=== PATIENT | male | born 1990 | race Caucasian/White ===

== ENCOUNTER 2019-02-08 00:42 | Emergency (ER) | payer BC, OTHER ==
[~2019-02-08] VITALS: Ht 188 cm; Wt 99.8 kg
--- NOTE | 2019-02-08 01:46 | ED Integumentary General ---
General Chief Complaint: Bite-Animal/Human/Insect Stated Complaint: POSSIBLE BROWN RECLUSE BITE Source: patient Exam Limitations: no limitations History of Present Illness Date Seen by Provider: February 08, 2019 Time Seen by Provider: 01:36 Initial Comments the patient presents to ER by private conveyance with chief complaint of his left knee medial anterior aspect has redness swelling and pain for the past 2-3 days presently worsening until today started draining some white discharge. He's been trying to express it on his own. He does not recall bug or insect or arachnid biting him. Does not have a history of abscesses. He does have a history of high blood pressure but not on any medicines. He does drink about 3-4 drinks minimum per day. Smokes one half packs of cigarettes daily. Denies recreational drug use. No nausea fevers chills or abdominal pain. Patient states he is up-to-date on his tetanus shot within the last 5 years. Allergies and Home Medications Allergies Coded Allergies: No Known Drug Allergies (Unverified , 02/08/19) Patient Home Medication List Home Medication List Reviewed: Yes Review of Systems Review of Systems Constitutional: No chills, No diaphoresis EENTM: No ear discharge, No ear pain Respiratory: No cough, No dyspnea on exertion Cardiovascular: No chest pain, No palpitations Gastrointestinal: No abdominal pain, No constipation Genitourinary: No discharge, No dysuria Past Ccvnnjq-Xcbvdn-Ffaukf Hx Patient Social History Alcohol Use: Regular Use Alcohol Beverage of Choice: Beer, Whiskey Recreational Drug Use: No Smoking Status: Current Everyday Smoker Type Used: Cigarettes Recent Foreign Travel: No Contact w/Someone Who Travel: No Physical Exam Vital Signs Vital Signs - First Documented 02/08/19 01:36 Temp 97.0 Pulse 93 Resp 18 B/P (MAP) 130/88 (102) Pulse Ox 97 O2 Delivery Room Air Capillary Refill : General Appearance: WD/WN, no apparent distress HEENT: PERRL/EOMI, pharynx normal Neck: full range of motion, normal inspection Cardiovascular: normal peripheral pulses, regular rate, rhythm Respiratory: no respiratory distress, no accessory muscle use Neurologic/Psychiatric: alert, normal mood/affect, oriented x 3 Skin: other (left knee anterior left medial moderate induration, one half to 2 cm diameter with a central pore and some dried serosanguineous discharge. Tender to palpation.) Procedures/Interventions I&D : Site: left knee anterior medial Blade Size: 15 I & D Procedure: betadine prep Progress Wound was thoroughly cleaned with sterile saline and then soaked in Betadine for 10 minutes. We then infiltrated the wound with 1% lidocaine without epinephrine. When the wound was anesthetized we then used an 15 blade scapula make a cross phillips incision to express 1-3 cc of thick, white, caseous matter. Flush the wound thoroughly with 50 cc of normal saline. Then put a sterile dressing over it and taped it. Patient tolerated the procedure well. Progress/Results/Core Measures Results/Orders My Orders Orders - ANDRE JORDAN Lidocaine 1% Inj 20 Ml (Xylocaine 1% Inj (02/08/19 02:00) Vital Signs/I&O 02/08/19 01:36 Temp 97.0 Pulse 93 Resp 18 B/P (MAP) 130/88 (102) Pulse Ox 97 O2 Delivery Room Air Progress Progress Note : Time: 01:49 Progress Note Minimal area of fluctuance but were going to attempt to open it up and see if is having no sneezing drained out and then put him on Bactrim. Lidocaine 1%. Departure Impression Primary Impression: Abscess Disposition: 01 HOME, SELF-CARE Condition: Improved Departure-Patient Inst. Decision time for Depature: 02:09 Referrals: NO,LOCAL PHYSICIAN (PCP) Primary Care Physician Patient Instructions: Abscess Incision and Drainage Add. Discharge Instructions: Keep the wound clean with regular soap and water and change the dressing as often as it becomes soiled or at least daily. The wound should heal over the next 2 days and when it does you can use just a thin coat of Vaseline and a Band-Aid as necessary. pipelines supervisor the Bactrim and take one tablet twice a day for the next 5 days with food. Tylenol 1000 mg every 8 hours as necessary for pain. Ibuprofen 800 mg every 8 hours as necessary for pain. Warm compresses as often as necessary for pain. If you have increasing redness, swelling, sensation of heat or pain coming from the wound, fevers, nausea and vomiting or pain in your joint then you need to be reexamined by a Dr. Expect significant improvement by day 3 or 4 of antibiotics. All discharge instructions reviewed with patient and/or family. Voiced understanding. Scripts Sulfamethoxazole/Trimethoprim (Bactrim Ds Tablet) 1 Each Tablet 1 EACH PO BID for 5 Days, #10 TAB 0 Refills Prov: ANDRE JORDAN 02/08/19 ANDRE JORDAN February 08, 2019 01:46
[2019-02-08] MEDS ORDERED: LIDOCAINE 1% INJ 20 ML 20 ML VIAL INJ ONE (02:00)
[2019-02-08] MEDS ORDERED: SULF1TAB35 PO (02:10)
[2019-02-08] MEDS ORDERED: TRIM/SULFAMETH 160/800 (SEPTRA DS) TAB PO ONE (02:15)
[2019-02-08 02:18] VITALS: BP 130/88
[2019-02-08] MEDS ORDERED: ACET-2267 PO (02:28)
== END 2019-02-08 02:18 | disposition home or self-care (01) ==
LOC: ER FS 00:46
DX: L02.416 Cutaneous abscess of left lower limb (principal); F17.210 Nicotine dependence, cigarettes, uncomplicated
CPT/HCPCS: 10060

== ENCOUNTER 2019-07-01 22:59 | Emergency (ER) | payer BC ==
[~2019-07-01] VITALS: Ht 186 cm; Wt 92.9 kg
[~2019-07-01 22:59] MED LIST: ACET-2267 PO; SULF1TAB35 PO
[2019-07-01 23:14] LABS: BILIRUBIN,URINE NEGATIVE (NEGATIVE); CLARITY,URINE CLEAR; COLOR,URINE CLEAR; GLUCOSE, URINE (UA) NEGATIVE (NEGATIVE); KETONES,URINE NEGATIVE (NEGATIVE); LEUKOCYTE ESTERASE ,URINE NEGATIVE (NEGATIVE); NITRITE,URINE NEGATIVE (NEGATIVE); PROTEIN,URINE NEGATIVE (NEGATIVE)
--- NOTE | 2019-07-01 23:15 | NUR ---
AT 2300 THE PATIENT GAVE THIS RN A SUPPOSED URINE SAMPLE AND IT TURNED OUT TO BE WATER FROM THE SINK. PT. NOTIFIED THAT WE WOULD NEED ANOTHER SAMPLE FOR THE LAB. PT. SAID HE WOULD GIVE A SAMPLE WHEN HE HAD TO URINATE. PATIENTS FATHER REPORTED THAT THE PT HAS GONE TO 3 COL[facility] STARTED TAKING PROZAC AND HE HAS NOT BEEN RIGHT SINCE. THE FATHER OF THE PATIENT STATED HE LOVES HIS KID AND HE NEEDS HELP.
--- NOTE | 2019-07-01 23:19 | ED Psychosocial ---
General Stated Complaint: SUIDUAL Source: patient (OFELIA EDWARDS MD) History of Present Illness Date Seen by Provider: Jul 01, 2019 Time Seen by Provider: 23:02 Initial Comments 28 yo M presents with complaints of being suicidal. He reports hearing voices in his head telling him that he is worthless, ugly and that he needs to . The voices are telling him to kill himself. He presents tonight with his Dad to the ED. He has a plan of stabbing himself repeatedly. He denies taking any pills, d rugs or medicine. He denies having problems with being suicidal in the past. (OFELIA EDWARDS MD) Allergies and Home Medications Allergies Coded Allergies: No Known Drug Allergies (Unverified , 02/08/19) Home Medications Acetaminophen 500 Mg Tablet, 1,000 MG PO Q8H PRN for PAIN-MILD TO MODERATE Prescribed by: ANDRE JORDAN on 02/08/19 0228 Sulfamethoxazole/Trimethoprim 1 Each Tablet, 1 EACH PO BID Prescribed by: ANDRE JORDAN on 02/08/19 0210 Patient Home Medication List Home Medication List Reviewed: Yes (OFELIA EDWARDS MD) Review of Systems Constitutional: No chills, No fever EENTM: no symptoms reported Respiratory: no symptoms reported Cardiovascular: no symptoms reported Gastrointestinal: no symptoms reported Genitourinary: no symptoms reported Musculoskeletal: no symptoms reported Skin: no symptoms reported Psychiatric/Neurological: Anxiety, Depressed (feeling suicidal and depressed) (OFELIA EDWARDS MD) Past [place]-Xckqse Hx Past Med/Social Hx: Reviewed Nursing Past Med/Soc Hx (OFELIA EDWARDS MD) Patient Social History Alcohol Beverage of Choice: Beer, Whiskey Type Used: Cigarettes 2nd Hand Smoke Exposure: Yes Recent Foreign Travel: No Contact w/Someone Who Travel: No Recent Hopitalizations: No (OFELIA EDWARDS MD) Immunizations Up To Date Tetanus Booster (TDap): Less than 5yrs (OFELIA EDWARDS MD) Seasonal Allergies Seasonal Allergies: No (OFELIA EDWARDS MD) Past Medical History Surgeries: No Respiratory: No Cardiac: No Neurological: No Genitourinary: No Gastrointestinal: No Musculoskeletal: No Endocrine: No HEENT: No Cancer: No Psychosocial: No Integumentary: No Blood Disorders: No (OFELIA EDWARDS MD) Physical Exam Vital Signs - First Documented 07/01/19 23:25 Temp 36.9 Pulse 94 Resp 18 B/P (MAP) 128/76 (93) Pulse Ox 100 O2 Delivery Room Air (ANDREA DOHERTY DO) Capillary Refill : (OFELIA EDWARDS MD) Height, Weight, BMI Height: 6'2.00" Weight: 220lbs. 0oz. 99.542979np; BMI Method:Stated General Appearance: WD/WN, no apparent distress HEENT: PERRL/EOMI, normal ENT inspection, pharynx normal Neck: non-tender, full range of motion, supple, normal inspection Respiratory: chest non-tender, lungs clear, normal breath sounds Cardiovascular: normal peripheral pulses, regular rate, rhythm Gastrointestinal: normal bowel sounds, non tender, soft, no pulsatile mass Extremities: normal range of motion, non-tender, normal inspection, no pedal edema, no calf tenderness Neurologic/Psychiatric: learning and development assistant II-XII nml as tested, alert, oriented x 3, other (anxious mood and stating he is hearing voices all the time telling him to kill himself) Appearance/Memory: appropriate appearance Behavior/Eye Contact: normal speech, avoids eye contact Thoughts/Hallucinations: auditory hallucinations Skin: normal color, warm/dry (OFELIA EDWARDS MD) Progress/Results/Core Measures Results/Orders Lab Results Laboratory Tests Test 07/01/19 23:00 07/01/19 23:20 07/02/19 08:22 Range/Units Urine Color CLEAR YELLOW Urine Clarity CLEAR CLEAR Urine pH 7.0 6.0 5-9 Urine Specific [place] <=1.005 >1.030 1.016-1.022 Urine Protein NEGATIVE 1+ H NEGATIVE Urine Glucose (UA) NEGATIVE NEGATIVE NEGATIVE Urine Ketones NEGATIVE TRACE H NEGATIVE Urine Nitrite NEGATIVE NEGATIVE NEGATIVE Urine Bilirubin NEGATIVE NEGATIVE NEGATIVE Urine Urobilinogen 0.2 0.2 NORMAL MG/DL Urine Leukocyte Esterase NEGATIVE NEGATIVE NEGATIVE Urine RBC (Auto) NEGATIVE NEGATIVE NEGATIVE Urine RBC NONE NONE /HPF Urine WBC NONE NONE /HPF Urine Squamous Epithelial Cells NONE /HPF Urine Crystals NONE NONE /LPF Urine Bacteria NEGATIVE NONE /HPF Urine Casts NONE NONE /LPF Urine Mucus NEGATIVE MODERATE H /LPF Urine Culture Indicated NO NO White Blood Count 9.0 4.3-11.0 10^3/uL Red Blood Count 4.91 4.35-5.85 10^6/uL Hemoglobin 14.2 13.3-17.7 G/DL Hematocrit 41 40-54 % Mean Corpuscular Volume 84 80-99 FL Mean Corpuscular Hemoglobin 29 25-34 PG Mean Corpuscular Hemoglobin Concent 34 32-36 G/DL Red Cell Distribution Width 12.6 10.0-14.5 % Platelet Count 285 130-400 10^3/uL Mean Platelet Volume 9.4 7.4-10.4 FL Neutrophils (%) (Auto) 55 42-75 % Lymphocytes (%) (Auto) 35 12-44 % Monocytes (%) (Auto) 7 0-12 % Eosinophils (%) (Auto) 2 0-10 % Basophils (%) (Auto) 1 0-10 % Neutrophils # (Auto) 4.9 1.8-7.8 X 10^3 Lymphocytes # (Auto) 3.2 1.0-4.0 X 10^3 Monocytes # (Auto) 0.7 0.0-1.0 X 10^3 Eosinophils # (Auto) 0.2 0.0-0.3 10^3/uL Basophils # (Auto) 0.1 0.0-0.1 10^3/uL Sodium Level 140 135-145 MMOL/L Potassium Level 3.5 L 3.6-5.0 MMOL/L Chloride Level 105 98-107 MMOL/L Carbon Dioxide Level 24 21-32 MMOL/L Anion Gap 11 5-14 MMOL/L Blood Urea Nitrogen 10 7-18 MG/DL Creatinine 0.73 0.60-1.30 MG/DL Estimat Glomerular Filtration Rate > 60 BUN/Creatinine Ratio 14 Glucose Level 113 H 70-105 MG/DL Calcium Level 8.7 8.5-10.1 MG/DL Corrected Calcium 8.8 8.5-10.1 MG/DL Total Bilirubin 0.2 0.1-1.0 MG/DL Aspartate Amino Transf (AST/SGOT) 17 5-34 U/L Alanine Aminotransferase (ALT/SGPT) 18 0-55 U/L Alkaline Phosphatase 113 40-136 U/L Total Protein 7.4 6.4-8.2 GM/DL Albumin 3.9 3.2-4.5 GM/DL Salicylates Level < 0.3 L 5.0-20.0 MG/DL Acetaminophen Level < 10 L 10-30 UG/ML Serum Alcohol < 10 <10 MG/DL Urine Opiates Screen NEGATIVE NEGATIVE Urine Oxycodone Screen NEGATIVE NEGATIVE Urine Methadone Screen NEGATIVE NEGATIVE Urine Propoxyphene Screen NEGATIVE NEGATIVE Urine Barbiturates Screen NEGATIVE NEGATIVE Ur Tricyclic Antidepressants Screen NEGATIVE NEGATIVE Urine Phencyclidine Screen NEGATIVE NEGATIVE Urine Amphetamines Screen POSITIVE H NEGATIVE Urine Methamphetamines Screen POSITIVE H NEGATIVE Urine Benzodiazepines Screen POSITIVE H NEGATIVE Urine Cocaine Screen NEGATIVE NEGATIVE Urine Cannabinoids Screen NEGATIVE NEGATIVE (ANDREA DOHERTY DO) My Orders Orders - ANDREA DOHERTY DO Ua Culture If Indicated (07/02/19 08:45) Drug Screen Stat (Urine) (07/02/19 08:45) (ANDREA DOHERTY DO) Vital Signs/I&O 07/02/19 07/02/19 07/02/19 13:00 17:16 19:53 Temp 36.4 36.6 Pulse 96 84 86 Resp 18 14 16 B/P (MAP) 109/61 (77) 107/66 (80) 119/56 (77) Pulse Ox 96 97 98 O2 Delivery Room Air (ANDREA DOHERTY DO) Progress Progress Note #1: Progress Note Patient had been asked to provide a urine specimen and we went in the bathroom he placed water in the specimen cup instead. Advised that we would need to get these tests including blood and urine before I could have any mental health evaluation for him to be able to get him some help. After obtaining blood and electrocardiogram will give him a dose of an antipsychotic to try and help with his voices while waiting on urine specimen and medical clearance to be able to speak with the [facility] mental health screener. Progress Note #2: Progress Note Labs are all stable without acute significant abnormality on his CBC, Chemistry, Alcohol, Acetaminophen, Salicylates. He has Normal ECG without abnormality. Medically stable and clear for screening by mental health. Still waiting on Urine specimen to be able to have mental health screening. Progress Note #3: Time: 06:00 Progress Note Pt refusing catheter and has still not given a urine specimen. This is the only thing still pending before the Mental health group will assess him. Will have to pass care to dayshift to complete care of the patient and determine his final disposition. (OFELIA EDWARDS MD) Initial ECG Impression Date: Jul 01, 2019 Initial ECG Impression Time: 23:09 Initial ECG Rate: 90 Initial ECG Rhythm: Normal Sinus Initial ECG Comparisson: No Previous ECG Available Comment Sinus rhythm with a heart rate 90 bpm. [place] interval of 168 ms. QT interval 373 ms with a QT corrected interval 457 ms. There is no acute ST elevation. There is no prior tracing available for comparison. (OFELIA EDWARDS MD) Transfer of Care Time: 06:00 Care transferred to: Dr. Doherty (OFELIA EDWARDS MD) Departure Communication (Admissions) H&P repeated. I agree with previous assessment. Recommendation per mental health screener is for voluntary inpatient treatment. Patient initially agreeable to inpatient psychiatric care, but declines transfer to three inpatient facilities willing to accept him. Patient verbally upset with ED staff stating that ED is not doing enough for him and leaves ED AMA. Patient demonstrates capacity to make decision. Mental health screener updated and informs staff patient does not currently meet involuntary status. Patient's other updated that if the patient makes suicidal or homicidal statements that he is to contact the police at which time the patient will be brought back to the emergency department and screener will place patient on involuntary status. (ANDREA DOHERTY DO) Impression Primary Impression: Left against medical advice Additional Impressions: Auditory hallucinations Polysubstance abuse Methamphetamine abuse Disposition: 07 AGAINST MEDICAL ADVICE Condition: Unchanged Departure-Patient Inst. Referrals: ROULA LINARES APRN (PCP) Primary Care Physician OFELIA EDWARDS MD Jul 01, 2019 23:19 ANDREA REDD DO Jul 02, 2019 11:15 POS
[2019-07-01 23:21] LABS: BACTERIA,URINE NEGATIVE /HPF
[2019-07-01] MEDS ORDERED: ZIPRASIDONE 20 MG (GEODON) CAP PO STA (23:24)
[2019-07-01 23:31] LABS: BASOPHILS % (AUTO) 1 % (0-10); EOSINOPHILS % (AUTO) 2 % (0-10); HEMATOCRIT 41 % (40-54); HEMOGLOBIN 14.2 G/DL (13.3-17.7); LYMPHOCYTES % (AUTO) 35 % (12-44); MEAN CORPUSCULAR HEMOGLOBIN 29 PG (25-34); MEAN CORPUSCULAR HGB CONC 34 G/DL (32-36); MEAN CORPUSCULAR VOLUME 84 FL (80-99); MEAN PLATELET VOLUME 9.4 FL (7.4-10.4); MONOCYTES % (AUTO) 7 % (0-12); NEUTROPHILS % (AUTO) 55 % (42-75); PLATELET COUNT 285 10^3/uL (130-400); RED CELL DISTRIBUTION WIDTH 12.6 % (10.0-14.5)
[2019-07-01 23:32] LABS: BASOPHILS # (AUTO) 0.1 10^3/uL (0.0-0.1); EOSINOPHILS # (AUTO) 0.2 10^3/uL (0.0-0.3); LYMPHOCYTES # (AUTO) 3.2 X 10^3 (1.0-4.0); MONOCYTES # (AUTO) 0.7 X 10^3 (0.0-1.0); NEUTROPHILS # (AUTO) 4.9 X 10^3 (1.8-7.8)
[2019-07-01 23:52] LABS: POTASSIUM 3.5 MMOL/L (3.6-5.0); SODIUM 140 MMOL/L (135-145)
[2019-07-01 23:53] LABS: ALANINE AMINOTRANSFERASE 18 U/L (0-55); ALBUMIN 3.9 GM/DL (3.2-4.5); ALKALINE PHOSPHATASE 113 U/L (40-136); BILIRUBIN,TOTAL 0.2 MG/DL (0.1-1.0); BUN/CREATININE RATIO 14; CALCIUM 8.7 MG/DL (8.5-10.1); CARBON DIOXIDE 24 MMOL/L (21-32); CHLORIDE 105 MMOL/L (98-107); CREATININE SERUM 0.73 MG/DL (0.60-1.30); GFR ESTIMATED > 60; GLUCOSE 113 MG/DL (70-105); SALICYLATE < 0.3 MG/DL (5.0-20.0); TOTAL PROTEIN 7.4 GM/DL (6.4-8.2)
[2019-07-01 23:54] LABS: ACETAMINOPHEN < 10 UG/ML (10-30)
--- NOTE | 2019-07-02 00:12 | NUR ---
NOTIFIED MENTAL HEALTH FOR THE NEED OF SCREENING. MENTAL HEALTH STATED THEY NEED THE DRUG SCREEN PRIOR TO THE SCREENING, TO CALL BACK AFTER THE RESULTS ARE BACK.
[2019-07-02] MEDS ORDERED: EMTR1TAB7 (00:48)
[2019-07-02] MEDS ORDERED: FLUO20CA45 (00:48)
[2019-07-02] MEDS ORDERED: BUPR300T51 (00:48)
[2019-07-02] MEDS ORDERED: HYDR50TA76 (00:48)
--- NOTE | 2019-07-02 06:01 | NUR ---
PT. HAS BEEN ASKED SEVERAL TIMES IF HE WOULD GIVE A URINE SAMPLE AND HE REFUSED TO DO SO STATING HE DOESNT HAVE TO GO. PT. STATED HE JUST WANTS TO SLEEP. PT. HAS SLEPT MOST OF THE TIME HE HAS BEEN HERE, AROUSING EASILY. PT. HAS BEEN GIVEN JUICE AND WATER.
[2019-07-02 08:14] VITALS: BP 103/68
--- NOTE | 2019-07-02 08:24 | NUR ---
Patient given orange juice for breakfast and asking for some food. This RN stated we have oatmeal, sandwiches, soup, pudding, or chips as options for something to eat. Patient asked if we were going to "just let me starve" and then said to bring him more juice. More orange juice provided for patient and stated for him to let us know if he changed his mind about wanting food.
[2019-07-02 08:56] LABS: CLARITY,URINE CLEAR; COLOR,URINE YELLOW
[2019-07-02 08:57] LABS: BILIRUBIN,URINE NEGATIVE (NEGATIVE); GLUCOSE, URINE (UA) NEGATIVE (NEGATIVE); KETONES,URINE TRACE (NEGATIVE); LEUKOCYTE ESTERASE ,URINE NEGATIVE (NEGATIVE); NITRITE,URINE NEGATIVE (NEGATIVE); PROTEIN,URINE 1+ (NEGATIVE)
[2019-07-02 09:06] LABS: AMPHETAMINE SCREEN, URINE POSITIVE (NEGATIVE); BARBITURATE SCREEN URINE NEGATIVE (NEGATIVE); BENZODIAZEPINES SCREEN URINE POSITIVE (NEGATIVE); CANNABINOID SCREEN, URINE NEGATIVE (NEGATIVE); COCAINE SCREEN URINE NEGATIVE (NEGATIVE); METHADONE STAT NEGATIVE (NEGATIVE); METHAMPHETAMINE SCREEN URINE S POSITIVE (NEGATIVE); OPIATE SCREEN URINE NEGATIVE (NEGATIVE); OXYCODONE STAT NEGATIVE (NEGATIVE); PROPOXYPHENE STAT NEGATIVE (NEGATIVE); TRICYCLIC ANTIDEPRESSANTS SCRE NEGATIVE (NEGATIVE)
--- NOTE | 2019-07-02 09:28 | NUR ---
Contacted [facility] at this time to request screening since UA and drug screen are now complete. Screener stated the tracking number is still [id number] and will call once the screening is set up in approximately 30 minutes.
--- NOTE | 2019-07-02 10:01 | NUR ---
Screener talking with patient via laptop at this time.
--- NOTE | 2019-07-02 10:02 | NUR ---
Labs and facesheet faxed to [facility] at [phone]
--- NOTE | 2019-07-02 10:25 | NUR ---
Screening done for patient. Screener states the patient is going to be a voluntary admission and he will be working on placement for him. If he does try to leave the patient will become involuntary at that time.
[2019-07-02 13:00] VITALS: BP 109/61
--- NOTE | 2019-07-02 13:32 | NUR ---
1317- Faxed referral to [facility] 1323-Faxed referral to [facility] 1332- Spoke with intake nurse at [facility] who stated they had beds and to fax information. They are also requesting an affidavit be completed. Referral faxed at this time.
--- NOTE | 2019-07-02 13:53 | NUR ---
[facility] called, they will fax the affidavit form.
--- NOTE | 2019-07-02 14:24 | NUR ---
Patient given daily home medications at this time from his own pill bottles per order from Dr Doherty. hydroxyzine 50 mg, buproprion 300 mg, [id number]/300, and fluoxetine 60 mg. Addendum: 07/02/19 at 1428 by KBELTRAM Patient given daily home medications at this time from his own pill bottles per order from Dr Doherty. buproprion 300 mg, [id number]/300, and fluoxetine 60 mg.
--- NOTE | 2019-07-02 15:15 | NUR ---
Patient is stating he will not go to [facility] because he does not think they accept his insurance. This RN called [facility] to see if they could tell if his insurance was accepted or not. The international broadcast music librarian stated the business office is closed on the weekend and they are unable to run his insurance to know for sure what coverage he will have.
[2019-07-02 17:16] VITALS: BP 107/66
--- NOTE | 2019-07-02 17:41 | NUR ---
Spoke with Errol, the mental health screener, who states he has not heard from [place] about patient admission and he is going to work on an admission at [facility].
--- NOTE | 2019-07-02 19:13 | NUR ---
[facility] DECLINED TO TAKE THE PATIENT.
[2019-07-02 19:53] VITALS: BP 119/56
--- NOTE | 2019-07-02 19:55 | NUR ---
PT. SLEEPING, AROUSED EASILY. PT. IS COOPERATIVE AT THIS TIME, ASKING FOR MORE JUICE. PT. HAS NO COMPLAINTS AT THIS TIME.
--- NOTE | 2019-07-02 19:56 | NUR ---
WAITING FOR MENTAL HEALTH TO CALL FOR PLACEMENT. PT. HAD REFUSED TO GO TO [facility] SO HIS FATHER IS SUPPOSED TO COME IN AND TALK WITH THE PATIENT.
--- NOTE | 2019-07-02 20:03 | NUR ---
MENTAL HEALTH CALLED TO SEE IF THE PT WOULD GO TO [facility], THEY WOULD TAKE HIM AND HIS INSURANCE BUT THE PT. STATED HE WAS NOT GOING TO GO THERE. WHEN ASKED WHY SINCE THEY WOULD TAKE HIM AND HIS INSURANCE SINCE THE INSURANCE WAS THE PROBLEM BEFORE HE SAID BECAUSE I JUST DO NOT WANT TO GO THERE. WHEN ASKED WHERE HE WOULD GO HE REPORTED ANYWHERE BUT THERE. PT. HAS DECLINED TO GO TO [place], [place] AND NOW [facility]. MENTAL HEALTH STAFF IS TRYING TO FIND PLACEMENT.
[2019-07-02 23:00] VITALS: BP 128/76
--- NOTE | 2019-07-02 23:00 | NUR ---
Doctor Doherty and the patients father was talking with the patient about placement. The pt. had refused 3 different facilities. the pt. continued to refuse placement when the Doctor and his father talked with him. pt. signed out [facility] and stormed out of the er yelling at staff. Doctor Doherty had talked with the patient about possible out patient therapy and the pt. refused that as well. This RN did call [facility] about the availability of the bed that was going to go to the patient before he declined it and was informed the bed was no longer available. This RN did call [place] and they have not called back. This RN did notify mental health and was informed if the doctor thought the patient was not going to hurt himself or others they would just shani him down as left the facility but if the doctor thought the pt was going to hurt himself or others we should call the police and have him re-evaluated as involuntary. mental health was informed the patient went [facility].
== END 2019-07-02 23:00 | disposition left against medical advice (07) ==
LOC: EDUNIT# 22:59 → ER FS 23:01
DX: F15.10 Other stimulant abuse, uncomplicated (principal); R44.0 Auditory hallucinations; F41.9 Anxiety disorder, unspecified; Z77.22 Contact with and (suspected) exposure to environmental tobacco smoke (acute) (chronic)
CPT/HCPCS: 36415; 80053; 80306; 80320; 80329; 81000; 85025; 93005

== ENCOUNTER 2020-02-09 03:49 | Emergency (ER) | payer BC ==
[~2020-02-09] VITALS: Ht 188 cm; Wt 83.0 kg
[~2020-02-09 03:49] MED LIST changes: +BUPR300T98; +EMTR1TAB7; +FLUO20CA46; +HYDR50TA76
--- NOTE | 2020-02-09 03:53 | ED General ---
General Chief Complaint: Substance Abuse Stated Complaint: ETOH Source of Information: Patient History of Present Illness Date Seen by Provider: February 09, 2020 Time Seen by Provider: 03:53 Initial Comments Patient is a 28-year-old male who comes to the emergency department this evening by EMS after drinking alcohol. His primary complaint is right sided abdominal pain which he states started earlier today. He has not had any nausea or vomiting. No prior history of similar symptoms. No fevers. No prior history of abdominal surgeries. He denies urinary symptoms or difficulties with bowel movements. Allergies and Home Medications Allergies Coded Allergies: No Known Drug Allergies (Unverified , 02/08/19) Home Medications Acetaminophen 500 Mg Tablet, 1,000 MG PO Q8H PRN for PAIN-MILD TO MODERATE Prescribed by: ANDRE JORDAN on 02/08/19 0228 Sulfamethoxazole/Trimethoprim 1 Each Tablet, 1 EACH PO BID Prescribed by: ANDRE JORDAN on 02/08/19 0210 Patient Home Medication List Home Medication List Reviewed: Yes Review of Systems Review of Systems Constitutional: no symptoms reported EENTM: no symptoms reported Respiratory: no symptoms reported Cardiovascular: no symptoms reported Gastrointestinal: see HPI Musculoskeletal: no symptoms reported Skin: no symptoms reported All Other Systems Reviewed Negative Unless Noted: Yes Past Dabcksz-Nnzypl-Kyokro Hx Patient Social History Alcohol Beverage of Choice: Beer, Whiskey Type Used: Cigarettes 2nd Hand Smoke Exposure: Yes Recent Foreign Travel: No Contact w/Someone Who Travel: No Recent Hopitalizations: No Immunizations Up To Date Tetanus Booster (TDap): Less than 5yrs Seasonal Allergies Seasonal Allergies: No Past Medical History Surgeries: No Respiratory: No Cardiac: No Neurological: No Genitourinary: No Gastrointestinal: No Musculoskeletal: No Endocrine: No HEENT: No Cancer: No Psychosocial: Yes Depression Integumentary: No Blood Disorders: No Physical Exam Vital Signs Capillary Refill : Height, Weight, BMI Height: 6'2.00" Weight: 220lbs. 0oz. [id number]; 26.00 BMI Method:Stated General Appearance: No Apparent Distress, WD/WN HEENT: PERRL/EOMI Neck: Full Range of Motion Respiratory: Lungs Clear Cardiovascular: Regular Rate, Rhythm, No Murmur Gastrointestinal: Normal Bowel Sounds, Non Tender, Soft Extremity: Normal Capillary Refill, Normal Inspection Neurologic/Psychiatric: Alert, Oriented x3 Skin: Normal Color Progress/Results/Core Measures Suspected Sepsis SIRS Temperature: Pulse: Respiratory Rate: Blood Pressure / Mean: Results/Orders Vital Signs/I&O Capillary Refill : Progress Note : Time: 04:03 Progress Note Patient arrives via EMS and states his last drink of alcohol was about 2 hours ago. His primary complaint is that he "feels dehydrated" and that he needs a drink of water. He does complain of abdominal pain as well over the right-sided abdomen although his abdominal exam is completely benign. He is nontender to palpation and has no guarding or rebound. Patient is largely uncooperative during the interview and continues to demand a glass of water. He initially requested that EMS gave him a ride to [place] but they brought him to this [facility] per protocol. Although I have low suspicion that the patient had acute abdominal pathology, I did recommend to him that he refrain from drinking water. The intent was to evaluate his abdominal pain with CT scan and labs. I offered the patient IV fluids if he was feeling dehydrated. Patient then stated if he could not have water by mouth that he did not want to be treated in this emergency room and wanted to sign out. Patient was not clinically intoxicated. He had a normal steady gait. He is competent to refuse care. I strongly encouraged him to remain in the emergency room for treatment and also emphasized very much that we would be happy to evaluate his complaints and also told him again that taking anything by mouth would not be recommended given his complaint of abdominal pain. By this time, the patient was already demanding to be discharged from the emergency department. He was willing to sign AMA paperwork. I encouraged him to come back to the ER if he did desire to have his abdominal pain further evaluated. Patient ambulates to the exit with normal steady gait. Departure Impression Primary Impression: Abdominal pain Disposition: 07 AGAINST MEDICAL ADVICE Condition: Against Medical Advice Departure-Patient Inst. Referrals: [facility] (PCP) Primary Care Physician ROULA LINARES APRN (Family) Primary Care Physician Patient Instructions: ALCOHOL AND SUBSTANCE ABUSE STEFFI JIM DO February 09, 2020 03:53
[2020-02-09 03:55] VITALS: BP 126/75
--- NOTE | 2020-02-09 03:55 | NUR ---
pt states he wants to drink water, Dr England advised pt he will give him iv fluids but nothing po, pt became very upset demanding oral fluids and states he does not want to be treated here. pt refusing to sign ems paperwork or ed paperwork
== END 2020-02-09 03:58 | disposition left against medical advice (07) ==
LOC: EDUNIT# 03:49 → ER FS 03:51
DX: R10.9 Unspecified abdominal pain (principal); Z77.22 Contact with and (suspected) exposure to environmental tobacco smoke (acute) (chronic)
CPT/HCPCS: 99285

== ENCOUNTER 2023-03-14 03:21 | Emergency (ER) | payer OTHER ==
[~2023-03-14] VITALS: Ht 187.9 cm; Wt 116.4 kg
[~2023-03-14 03:21] MED LIST changes: -FLUO20CA46; +FLUO20CA48; -SULF1TAB35 PO; +SULF1TAB38 PO
[2023-03-14 03:24] VITALS: BP 132/87
[2023-03-14] MEDS ORDERED: ONDANSETRON 4 MG (ZOFRAN) ORAL DISSOLVE TAB PO STA (03:37)
[2023-03-14] MEDS ORDERED: DOLU50TA PO (03:50)
[2023-03-14] MEDS ORDERED: EMTR1TAB7 PO (03:50)
--- NOTE | 2023-03-14 03:52 | ED General ---
General Chief Complaint: General Problems/Pain Stated Complaint: DIZZY,NAUSEA,DEHYDRATED Nursing Triage Note: Patient states that he is having a hard day. Patient reports that his car broke down and he walked 2 miles. He feels like he is dehydrated and is nauseated. Patient also states that he feels like he was exposed to HIV in the last few days. Patient also complains of leg cramps. Source of Information: Patient History of Present Illness Date Seen by Provider: Mar 14, 2023 Time Seen by Provider: 03:25 Initial Comments 32 yo male presenting with complaints of having a stressful day and being anxious. He had to walk 2 miles and felt like he was dehydrated and is nauseated. He wanted to check into a hotel room but was $10 short for the room. He reports severe leg cramps that made him cry out in pain but they are currently resolved as he is sitting in the bed in the ED. He reports having oral sex within the last 72 hours and wants medicine for HIV post-exposure prophylaxis. He usually takes Truvada as a Pre-exposure Prophylaxis but states he lost his prescription and has been out for about 10 days. He is drinking water and has not had any vomiting but has felt nauseated. He reports having PTSD and concern that he is getting more upset from that. Adamant that he is not suicidal or homicidal but says he is just really stressed out and anxious. He reports he is waiting on his dad to get here and thinks he will leave with him to go back to [place] but is not sure. Timing/Duration: 4-6 Hours Severity: Moderate Modifying Factors: worse with Movement (walking was making his leg cramps worse) Associated Systoms: No Chest Pain, No Cough, No Diaphoresis, No Fever/Chills, No Headaches; Nausea/Vomiting (nausea but no emesis); No Rash, No Seizure, No Shortness of Air, No Syncope, No Weakness Allergies and Home Medications Allergies Coded Allergies: No Known Drug Allergies (Unverified , 02/08/19) Patient Home Medication List Home Medication List Reviewed: Yes Acetaminophen (Tylenol Extra Strength) 500 Mg Tablet, 1,000 MG PO Q8H PRN for PAIN-MILD TO MODERATE Prescribed by: ANDRE JORDAN on 02/08/19 0228 Bupropion HCl (Bupropion Xl) 300 Mg Tab.er.24h, (Reported) Entered as Reported by: RADHA CERDA on 07/02/1947 Dolutegravir Sodium (Tivicay) 50 Mg Tablet, 50 MG PO DAILY Prescribed by: OFELIA EDWARDS on 03/14/23349 Emtricitabine/Tenofovir (Truvada 200 mg-300 mg Tablet) 1 Each Tablet, (Reported) Entered as Reported by: RADHA CERDA on 07/02/1947 Emtricitabine/Tenofovir (Truvada 200 mg-300 mg Tablet) 200 Mg-300 Mg Tablet, 1 EACH PO DAILY Prescribed by: OFELIA EDWARDS on 03/14/23349 Fluoxetine HCl (Fluoxetine HCl) 20 Mg Capsule, (Reported) Entered as Reported by: RADHA CERDA on 07/02/1947 Hydroxyzine HCl (Hydroxyzine HCl) 50 Mg Tablet, (Reported) Entered as Reported by: RADHA CERDA on 07/02/1947 Sulfamethoxazole/Trimethoprim (Bactrim Ds Tablet) 1 Each Tablet, 1 EACH PO BID Prescribed by: ANDRE JORDAN on 02/08/19209 Review of Systems Review of Systems Constitutional: No chills, No fever EENTM: no symptoms reported Respiratory: No cough Cardiovascular: No chest pain Gastrointestinal: nausea; No vomiting Genitourinary: no symptoms reported Musculoskeletal: see HPI Skin: No rash Psychiatric/Neurological: Anxiety, Emotional Problems Past Yxwrouq-Lawqhw-Mvdhge Hx Patient Social History Tobacco Use?: No Substance use?: No Alcohol Use?: No Pt feels they are or have been: No Immunizations Up To Date Tetanus Booster (TDap): Less than 5yrs Seasonal Allergies Seasonal Allergies: No Past Medical History Surgery/Hospitalization HX: PTSD, Anxiety, Taking PREP for HIV Surgeries: No Respiratory: No Cardiac: No Neurological: No Genitourinary: No Gastrointestinal: No Musculoskeletal: No Endocrine: No HEENT: No Cancer: No Psychosocial: Yes Depression Integumentary: No Blood Disorders: No Physical Exam Vital Signs Vital Signs - First Documented 03/14/23 03:24 Temp 37.2 Pulse 112 Resp 18 B/P (MAP) 132/87 (102) Pulse Ox 98 O2 Delivery Room Air Capillary Refill : Less Than 3 Seconds Height, Weight, BMI Height: 6'2.00" Weight: 220lbs. 0oz. [id number]; 32.00 BMI Method:Stated General Appearance: Anxious HEENT: PERRL/EOMI; No Moist Mucous Membranes (slightly dry mucous membranes), No Tonsillar Exudate, No Tonsillar Enlargement Neck: Full Range of Motion, Normal Inspection, Non Tender, Supple Respiratory: Chest Non Tender, Lungs Clear, Normal Breath Sounds, No Accessory Muscle Use, No Respiratory Distress Cardiovascular: Regular Rate, Rhythm, Normal Peripheral Pulses Gastrointestinal: Normal Bowel Sounds, No Pulsatile Mass, Non Tender, Soft Rectal: Deferred Extremity: Normal Capillary Refill, Normal Inspection, No Pedal Edema Neurologic/Psychiatric: Alert, Oriented x3, pipelaying fitter II-XII Norm as Tested Skin: Normal Color, Warm/Dry Progress/Results/Core Measures Suspected Sepsis SIRS Temperature: Pulse: 112 Respiratory Rate: 18 Blood Pressure 132 /87 Mean: 102 Results/Orders My Orders Orders - OFELIA EDWARDS MD Ondansetron Oral Dissolve Tab (Zofran (03/14/23 03:37) Vital Signs/I&O 03/14/23 03:24 Temp 37.2 Pulse 112 Resp 18 B/P (MAP) 132/87 (102) Pulse Ox 98 O2 Delivery Room Air Capillary Refill : Less Than 3 Seconds Blood Pressure Mean: 102 Progress Note : Progress Note Potential diagnosis Stress, Anxiety, Dehydration, Substance Abuse, PTSD. Discussed with patient that he could have an IV established and check basic labs and give saline for hydration as well as a nausea medicine. He repeatedly asked for Post Exposure Prophylaxis for HIV as he had oral sex within the last 72 hours and is concerned he has been exposed to HIV. He denies drug use, alcohol abuse. States he lost his medicine and PREP script of Truvada about 10 days ago. He was very anxious and seemed to have a hard time sitting still. When advised t hat it would be 45 to 60 minutes at least to get labs and give IV fluids he refused to have those done because he did not want to sit here that long. He was agreeable to getting oral dissolving tab of Zofran for nausea so given 4 mg ODT Zofran. Advised I do not have PEP medicine to start him on but can send a prescription to pharmacy of his choice. He requested [facility] in [place]. After review of recommendations from online medical reference, [employer], I sent prescription for Truvada and Dolutegravir to be taken daily for 28 days. Counseled to follow up with [facility] or Health department for HIV and STI testing. Advised he could call [facility] if he has concerns about his PTSD and anxiety. As I was reviewing the recommendations for PEP for HIV He kept pacing and coming to the nurses asking for food, water, phone. He repeatedly asked if it would be much longer as he was anxious and really wanted to go. He then asked the nurse while he was getting his discharge papers if we could transfer him to another ER so he could get a referral to Rehab. Advised that no ER would give him a referral to Rehab. He then took his discharge information and was discharged to the ED waiting room. Departure Impression Primary Impression: Nausea Additional Impressions: Stress Contact with and (suspected) exposure to infections with a predominantly sexual mode of transmission Disposition: HOME, SELF-CARE Condition: Stable Departure-Patient Inst. Decision time for Depature: 03:48 Referrals: [facility]/[place] (PCP) Primary Care Physician ROULA LINARES APRN (Family) Primary Care Physician Patient Instructions: Sexually Transmitted Diseases ED, Stress, Nausea and Vomiting, Adult ED Add. Discharge Instructions: Try drinking plenty of water and electrolyte drinks to help stay hydrated. Take the antiviral medicines for the next 28 days to try and help treat for post-exposure prophylaxis for HIV after unprotected sexual intercourse. Check back with clinic or health department for HIV testing and sexual transmitted infections. All discharge instructions reviewed with patient and/or family. Voiced understanding. Scripts Dolutegravir Sodium (Tivicay) 50 Mg Tablet 50 MG PO DAILY for Postexposure Prophylaxis for 28 Days, #28 TAB 0 Refills Prov: OFELIA EDWARDS MD 03/14/23 Emtricitabine/Tenofovir (Truvada 200 mg-300 mg Tablet) 200 Mg-300 Mg Tablet 1 EACH PO DAILY for Postexposure Prophylaxis for 28 Days, #28 TAB 0 Refills Prov: OFELIA EDWARDS MD 03/14/23 OFELIA EDWARDS MD Mar 14, 2023 03:52
== END 2023-03-14 03:54 | disposition home or self-care (01) ==
LOC: EDUNIT# 03:21 → ER FS 03:25
DX: R11.0 Nausea (principal); F43.9 Reaction to severe stress, unspecified; Z20.2 Contact with and (suspected) exposure to infections with a predominantly sexual mode of transmission; Z28.310 Unvaccinated for COVID-19
CPT/HCPCS: 99283